=== PATIENT | male | born 1955 | race Two or more races ===

== ENCOUNTER 2017-09-13 07:13 | Outpatient (CLI) | payer OTHER | END 2017-09-13 10:04 | disposition home or self-care (01) | LOC: NUCLEAR 07:13 | DX: R07.89 Other chest pain (principal) | CPT/HCPCS: 78452; 93017; A9500 ==

== ENCOUNTER 2018-03-03 08:25 | Outpatient (CLI) | payer OTHER | END 2018-03-03 08:30 | disposition home or self-care (01) | LOC: LAB 08:25 | DX: E11.9 Type 2 diabetes mellitus without complications (principal) ==

== ENCOUNTER 2018-03-06 07:14 | Outpatient (CLI) | payer OTHER | END 2018-03-06 07:31 | disposition home or self-care (01) | LOC: TOM 07:14 | DX: E78.2 Mixed hyperlipidemia (principal); R51 Headache ==

== ENCOUNTER 2020-10-20 07:16 | Outpatient (CLI) | payer OTHER | END 2020-10-20 07:21 | disposition home or self-care (01) | LOC: SONOGRAMA 07:16 | DX: N40.1 Benign prostatic hyperplasia with lower urinary tract symptoms (principal); N31.8 Other neuromuscular dysfunction of bladder ==

== ENCOUNTER 2021-12-08 07:23 | Outpatient (CLI) | payer OTHER | END 2021-12-08 07:25 | disposition home or self-care (01) | LOC: NUCLEAR 07:23 | PROVIDERS: ATTEND Internal Medicine Cardiovascular Disease | DX: I25.10 Atherosclerotic heart disease of native coronary artery without angina pectoris (principal) | CPT/HCPCS: 78452; 93017; A9500 ==